=== PATIENT | male | born 1985 | race Hispanic/Latino ===

== ENCOUNTER → 2021-03-16 | Outpatient (CLI) | payer OTHER ==
[~2021-03-16] MED LIST: OMEPRAZOLE40 MG PO; TYLENOL EXTRA500 MG PO; ZESTRIL10 MG PO
== END ==
LOC: LAB 13:51 → EDSTATUS 03-19 13:00
PROVIDERS: ATTEND Internal Medicine Gastroenterology
DX: Z01.818 Encounter for other preprocedural examination (principal); R11.0 Nausea; R14.0 Abdominal distension (gaseous); Z20.822 Contact with and (suspected) exposure to COVID-19
CPT/HCPCS: 93005; U0002